=== PATIENT | female | born 1985 | race Caucasian/White ===

== ENCOUNTER 2018-04-11 11:37 | Observation (INO) | payer OTHER ==
[~2018-04-11] VITALS: Ht 161 cm; Wt 78.9 kg
[2018-04-11 12:16] VITALS: BP 129/89
[2018-04-11 12:36] LABS: HEMATOCRIT 36.2 % (36-46); HEMOGLOBIN 12.8 g/dL (12.0-16.0); LYMPHOCYTES # (AUTO) 1.4 K/uL (1.0-4.8); LYMPHOCYTES % (AUTO) 17.4 % (22.0-44.0); MEAN CORPUSCULAR HEMOGLOBIN 31.2 pg (26.0-34.0); MEAN CORPUSCULAR HGB CONC 35.3 G/dL (31.0-37.0); MEAN CORPUSCULAR VOLUME 88 fL (80-100); MONOCYTES # (AUTO) 0.7 K/uL (0.1-1.0); MONOCYTES % (AUTO) 9.1 % (2.0-9.0); NEUTROPHILS # (AUTO) 5.7 K/uL (1.8-7.7); NEUTROPHILS % (AUTO) 71.5 % (40.0-70.0); PLATELET COUNT (AUTO)-OB 254 K/uL (150-450); RED CELL DISTRIBUTION WIDTH 14.1 % (11.5-14.5)
[2018-04-11 12:50] LABS: ANION GAP 6 mmol/L (8-16); CALCIUM, TOTAL 8.8 mg/dL (8.8-10.5); CARBON DIOXIDE 26 mmol/L (22-29); CHLORIDE 101 mmol/L (98-107); GLOMERULAR FILTR. RATE CALC > 60 mL/min (>60); GLUCOSE,RANDOM 88 mg/dL (70-110); POTASSIUM 4.3 mmol/L (3.5-5.1); SODIUM SERUM 133 mmol/L (136-145); UREA NITROGEN, BLOOD 8 mg/dL (7-18)
[2018-04-11 12:54] LABS: ALANINE AMINOTRANSFERASE 27 U/L (12-78); ALBUMIN 2.9 g/dL (3.4-5.0); ALKALINE PHOSPHATASE 135 U/L (46-116); ASPARTATE AMINOTRANSFERASE 21 U/L (15-37); BILIRUBIN,TOTAL 0.7 mg/dL (0.1-1.0); TOTAL PROTEIN, SERUM 6.9 g/dL (6.4-8.2); URIC ACID 5.2 mg/dL (2.6-7.2)
== END 2018-04-11 14:00 | disposition home or self-care (01) ==
LOC: 4S 11:37
PROVIDERS: ADMIT Obstetrics & Gynecology; ATTEND Obstetrics & Gynecology
DX: Z34.03 Encounter for supervision of normal first pregnancy, third trimester (principal); Z3A.39 39 weeks gestation of pregnancy
CPT/HCPCS: 59025; 84550

== ENCOUNTER 2018-04-14 11:33 | Inpatient (IN) | payer OTHER ==
[~2018-04-14] VITALS: Ht 161 cm; Wt 79.8 kg
[2018-04-14] MEDS ORDERED: PNV11TAB PO (11:37)
[2018-04-14 12:37] VITALS: BP 135/77
[2018-04-14] MEDS ORDERED: OXYTOCIN 30 UNITS/LACT RINGERS 500 ML IV PRN (13:29)
[2018-04-14] MEDS ORDERED: RINGERS SOLUTION,LACTATED 1,000 ML IV PRN (13:29)
[2018-04-14] MEDS ORDERED: LIDOCAINE HCL/PF 1% 30 ML VIAL INJ PRN (13:30)
[2018-04-14] MEDS ORDERED: METHYLERGONOVINE MALEATE 0.2 MG/ML VIAL IM PRN (13:30)
[2018-04-14] MEDS ORDERED: CITRIC ACID/SODIUM CITRATE 30 ML SOLUTION UDCUP PO PRN (13:30)
[2018-04-14] MEDS ORDERED: METOCLOPRAMIDE HCL 5 MG/ML 2 ML VIAL IVP PRN (13:30)
[2018-04-14] MEDS ORDERED: FentaNYL CITRATE-PF 100 MCG/2 ML VIAL IVP PRN ×2 (13:30→20:15)
[2018-04-14 13:57] LABS: BASOPHILS % (AUTO) 0.6 % (0.0-2.0); EOSINOPHILS % (AUTO) 0.5 % (1.0-6.0); HEMATOCRIT 35.9 % (36-46); HEMOGLOBIN 12.2 g/dL (12.0-16.0); LYMPHOCYTES # (AUTO) 1.5 K/uL (1.0-4.8); LYMPHOCYTES % (AUTO) 10.4 % (22.0-44.0); MEAN CORPUSCULAR HEMOGLOBIN 30.4 pg (26.0-34.0); MEAN CORPUSCULAR HGB CONC 34.1 G/dL (31.0-37.0); MEAN CORPUSCULAR VOLUME 89 fL (80-100); MONOCYTES # (AUTO) 0.7 K/uL (0.1-1.0); MONOCYTES % (AUTO) 5.2 % (2.0-9.0); NEUTROPHILS % (AUTO) 83.3 % (40.0-70.0); PLATELET COUNT (AUTO)-OB 250 K/uL (150-450); RED BLOOD CELL COUNT(AUTO) 4.02 MIL/uL (4.00-5.20)
[2018-04-14] MEDS: RINGERS SOLUTION,LACTATED 1,000 ML IV SCH ×3 (14:03→15:49)
[2018-04-14] MEDS ORDERED: ROPIVACAINE HCL/PF 0.2% 100 ML ED ONE (14:40)
[2018-04-14] MEDS ORDERED: LIDOCAINE HCL 2%/EPI 1:200,000/PF 20 ML VIAL ONE (14:41)
[2018-04-14] MEDS ORDERED: BUPIVACAINE HCL/PF 0.25% 10 ML VIAL ONE (14:45)
[2018-04-14] MEDS ORDERED: ROPIVACAINE HCL/PF 1% 10 MG/ML 20 ML VIAL ED ONE (14:45)
[2018-04-14] MEDS ORDERED: LIDOCAINE HCL/PF 2% 5 ML VIAL ONE (14:45)
[2018-04-14] MEDS ORDERED: SODIUM CHLORIDE 0.9% 100 ML ONE (14:45)
[2018-04-14] MEDS ORDERED: AMPICILLIN SODIUM 2 GM/NS 100 ML IV ONE (16:00)
[2018-04-14] MEDS ORDERED: TRANEXAMIC ACID 1,000 MG in DEXTROSE 5%-WATER 50 ML IV ONE (17:30)
[2018-04-14] MEDS ORDERED: RINGERS SOLUTION,LACTATED 1,000 ML IV ONE ×2 (19:18→20:32)
[2018-04-14] MEDS ORDERED: ALBUMIN HUMAN 5%-12.5GM/250ML 250 ML IV ONE (19:36)
[2018-04-14] MEDS ORDERED: OXYGEN THERAPY IH SCH ×3 (20:00→20:15)
[2018-04-14] MEDS ORDERED: *CLINICAL-GENTAMICIN DOSING CLINICAL ONE (20:00)
[2018-04-14] MEDS ORDERED: AMPICILLIN SODIUM 1 GM/NS 50 ML IV SCH (20:00)
[2018-04-14] MEDS ORDERED: DiphenhydrAMINE HCL 50 MG/ML VIAL IVP PRN (20:15)
[2018-04-14] MEDS ORDERED: NALBUPHINE HCL 10 MG/ML VIAL IVP PRN ×2 (20:15)
[2018-04-14] MEDS ORDERED: ONDANSETRON HCL 4 MG/2 ML VIAL IVP PRN (20:15)
[2018-04-14] MEDS ORDERED: GENTAMICIN SULFATE 160 MG in DEXTROSE 5%-WATER 50 ML IV ONE (20:15)
[2018-04-14] MEDS ORDERED: NALOXONE HCL 0.4 MG/ML VIAL IVP PRN (20:15)
[2018-04-14] MEDS ORDERED: LANOLIN 7 GM OINTMENT TP PRN (20:30)
[2018-04-14] MEDS ORDERED: ACETAMINOPHEN/CODEINE 300-30 MG TABLET PO PRN ×2 (20:30)
[2018-04-14] MEDS ORDERED: ACETAMINOPHEN 1000 MG/ISO-OSM 100 ML IV ONE (20:32)
[2018-04-14] MEDS: ACETAMINOPHEN 1000 MG/ISO-OSM 100 ML IV SCH (20:42)
[2018-04-14] MEDS: NALBUPHINE HCL 10 MG/ML VIAL IVP SCH (21:03)
[2018-04-15] MEDS: DEXTROSE 5%-0.45% SODIUM CHL 1,000 ML IV SCH ×2 (02:35→05:58)
[2018-04-15] MEDS: NALBUPHINE HCL 10 MG/ML VIAL IVP SCH ×2 (02:35→09:09)
[2018-04-15] MEDS: ACETAMINOPHEN 1000 MG/ISO-OSM 100 ML IV SCH (04:50)
[2018-04-15 06:44] VITALS: BP 113/62
[2018-04-15] MEDS: IBUPROFEN 800 MG TABLET PO SCH ×2 (14:17→20:25)
[2018-04-15] MEDS: MAGNESIUM HYDROXIDE SUSPENSION 30 ML UDCUP PO SCH (20:28)
[2018-04-16] MEDS: IBUPROFEN 800 MG TABLET PO SCH ×4 (02:35→20:36)
[2018-04-16] MEDS ORDERED: MORPHINE SULFATE/PF 0.5 MG/ML 10 ML AMP IVP ONE (05:44)
[2018-04-16] MEDS ORDERED: FentaNYL CITRATE-PF 100 MCG/2 ML VIAL IVP ONE (05:44)
[2018-04-16] MEDS: MAGNESIUM HYDROXIDE SUSPENSION 30 ML UDCUP PO SCH ×2 (08:57→09:00)
[2018-04-17] MEDS: IBUPROFEN 800 MG TABLET PO SCH ×2 (03:24→10:02)
[2018-04-17] MEDS: MAGNESIUM HYDROXIDE SUSPENSION 30 ML UDCUP PO SCH (09:00)
[2018-04-17] MEDS ORDERED: IBUP-2071 PO (10:21)
[2018-04-17] MEDS ORDERED: FERR-89 PO (10:23)
== END 2018-04-17 13:15 | disposition home or self-care (01) | DRG 766 ==
LOC: 4S 11:33 → OBSVTOIN 11:33 → 4S 22:15
PROVIDERS: ADMIT Obstetrics & Gynecology; ATTEND Obstetrics & Gynecology
PROC: 10D00Z1 Extraction of Products of Conception, Low, Open Approach (ICD-10-PCS; principal; 2018-04-14)
DX: O76 Abnormality in fetal heart rate and rhythm complicating labor and delivery (principal); O62.0 Primary inadequate contractions; Z37.0 Single live birth; O62.2 Other uterine inertia; Z3A.39 39 weeks gestation of pregnancy
CPT/HCPCS: 85461; 86850; 86870; 86900; 86901; 86920; J0131; J0290; J1580; J2274; J2300; J2590; J2765; J2795; J3010; J3490; J7050; J7060; J7120; P9041

== ENCOUNTER 2019-12-23 05:40 | Inpatient (IN) | payer OTHER ==
[~2019-12-23] VITALS: Ht 152.4 cm; Wt 84.8 kg
[~2019-12-23 05:40] MED LIST: FERR-89 PO; IBUP-2071 PO; PNV11TAB PO
[2019-12-23] MEDS ORDERED: PREN-217 PO (05:45)
[2019-12-23] MEDS ORDERED: RINGERS SOLUTION,LACTATED 1,000 ML IV ONE (05:46)
[2019-12-23] MEDS ORDERED: METOCLOPRAMIDE HCL 5 MG/ML 2 ML VIAL IVP ONE (06:00)
[2019-12-23] MEDS ORDERED: CITRIC ACID/SODIUM CITRATE 30 ML SOLUTION UDCUP PO ONE (06:00)
[2019-12-23 06:35] LABS: BASOPHILS % (AUTO) 0.6 % (0.0-2.0); EOSINOPHILS % (AUTO) 2.9 % (1.0-6.0); HEMATOCRIT 39.6 % (36-46); HEMOGLOBIN 13.5 g/dL (12.0-16.0); LYMPHOCYTES # (AUTO) 2.3 K/uL (1.0-4.8); LYMPHOCYTES % (AUTO) 22.9 % (22.0-44.0); MEAN CORPUSCULAR HEMOGLOBIN 31.5 pg (26.0-34.0); MEAN CORPUSCULAR HGB CONC 34.2 G/dL (31.0-37.0); MEAN CORPUSCULAR VOLUME 92 fL (80-100); MONOCYTES # (AUTO) 0.7 K/uL (0.1-1.0); MONOCYTES % (AUTO) 6.6 % (2.0-9.0); NEUTROPHILS # (AUTO) 6.6 K/uL (1.8-7.7); PLATELET COUNT (AUTO) 252 K/uL (150-450); RED BLOOD CELL COUNT(AUTO) 4.29 MIL/uL (4.00-5.20); RED CELL DISTRIBUTION WIDTH 13.5 % (11.5-14.5)
[2019-12-23 06:59] VITALS: BP 121/60
[2019-12-23] MEDS ORDERED: CeFAZolin 2 GM/DEXTROSE 50 ML IV ONE (07:05)
[2019-12-23] MEDS ORDERED: FentaNYL CITRATE-PF 100 MCG/2 ML VIAL ONE (07:05)
[2019-12-23] MEDS ORDERED: MORPHINE SULFATE/PF 0.5 MG/ML 10 ML AMP ONE (07:06)
[2019-12-23] MEDS ORDERED: ACETAMINOPHEN 1000 MG/ISO-OSM 100 ML IV ONE (07:06)
[2019-12-23] MEDS ORDERED: BUPIVACAINE HCL/DEX-WATER/PF 0.75% 2 ML AMP ONE (07:11)
[2019-12-23] MEDS ORDERED: ACETAMINOPHEN/CODEINE 300-30 MG TABLET PO PRN ×2 (08:45)
[2019-12-23] MEDS ORDERED: LANOLIN 7 GM OINTMENT TP PRN (08:45)
[2019-12-23] MEDS ORDERED: DEXAMETHASONE SOD PHOS 4 MG/ML VIAL IVP PRN (09:15)
[2019-12-23] MEDS ORDERED: NALOXONE HCL 0.4 MG/ML VIAL IVP PRN (09:15)
[2019-12-23] MEDS ORDERED: MEPERIDINE-PF 25 MG/ML VIAL IVP PRN (09:15)
[2019-12-23] MEDS ORDERED: DiphenhydrAMINE HCL 50 MG/ML VIAL IVP PRN ×2 (09:15)
[2019-12-23] MEDS ORDERED: NALBUPHINE HCL 10 MG/ML VIAL IVP PRN ×3 (09:15)
[2019-12-23] MEDS ORDERED: ONDANSETRON HCL 4 MG/2 ML VIAL IVP PRN ×2 (09:15)
[2019-12-23] MEDS ORDERED: FentaNYL CITRATE-PF 100 MCG/2 ML VIAL IVP PRN ×3 (09:15)
[2019-12-23] MEDS ORDERED: DEXTROSE 5%-0.45% SODIUM CHL 1,000 ML IV ONE (09:36)
[2019-12-23] MEDS: DEXTROSE 5%-0.45% SODIUM CHL 1,000 ML IV SCH ×3 (10:06→20:47)
[2019-12-23] MEDS ORDERED: EPHEDrine SULFATE 50 MG/ML VIAL IM ONE (12:00)
[2019-12-23] MEDS ORDERED: PHENYLEPHRINE HCL 10 MG/ML VIAL IVP ONE (12:00)
[2019-12-23] MEDS ORDERED: KETOROLAC TROMETHAMINE 60 MG/2 ML VIAL IM ONE (12:00)
[2019-12-23] MEDS ORDERED: DEXAMETHASONE SOD PHOS 4 MG/ML VIAL IVP ONE (12:00)
[2019-12-23] MEDS ORDERED: OXYTOCIN 10 UNITS/ML VIAL IM ONE (12:00)
[2019-12-23] MEDS: KETOROLAC TROMETHAMINE 30 MG/ML VIAL IVP SCH ×2 (15:18→20:46)
[2019-12-23] MEDS: ACETAMINOPHEN 1000 MG/ISO-OSM 100 ML IV SCH (16:31)
[2019-12-23] MEDS ORDERED: OXYGEN THERAPY IH SCH ×3 (20:00)
[2019-12-23] MEDS: MAGNESIUM HYDROXIDE SUSPENSION 30 ML UDCUP PO SCH (20:49)
[2019-12-24] MEDS: DEXTROSE 5%-0.45% SODIUM CHL 1,000 ML IV SCH (00:37)
[2019-12-24] MEDS: ACETAMINOPHEN 1000 MG/ISO-OSM 100 ML IV SCH (00:37)
[2019-12-24] MEDS: IBUPROFEN 800 MG TABLET PO SCH ×2 (08:23→20:02)
[2019-12-24] MEDS: MAGNESIUM HYDROXIDE SUSPENSION 30 ML UDCUP PO SCH ×2 (08:23→20:02)
[2019-12-25] MEDS: IBUPROFEN 800 MG TABLET PO SCH ×4 (01:47→21:55)
[2019-12-25] MEDS: MAGNESIUM HYDROXIDE SUSPENSION 30 ML UDCUP PO SCH ×2 (08:13→21:55)
[2019-12-26] MEDS: IBUPROFEN 800 MG TABLET PO SCH (03:54)
== END 2019-12-26 12:55 | disposition home or self-care (01) | DRG 788 ==
LOC: 4S 05:40 → OBSVTOIN 05:40 → 4S 06:21 → UNDOADMOB 06:21 → OBSVTOIN 06:21 → INTOOBSV 06:21
PROVIDERS: ADMIT Obstetrics & Gynecology; ATTEND Obstetrics & Gynecology
PROC: 10D00Z1 Extraction of Products of Conception, Low, Open Approach (ICD-10-PCS; principal; 2019-12-23)
DX: O34.211 Maternal care for low transverse scar from previous cesarean delivery (principal); Z3A.39 39 weeks gestation of pregnancy; Z37.0 Single live birth
CPT/HCPCS: 85461; 86850; 86870; 86900; 86901; 87081; J0131; J0690; J1100; J1885; J2274; J2370; J2405; J2590; J2765; J3010; J3490; J7120